=== PATIENT | male | born 1965 | race Caucasian/White ===

== ENCOUNTER 2018-07-24 17:24 | Emergency (ER) | payer OTHER ==
[~2018-07-24] VITALS: Ht 180.3 cm; Wt 117.9 kg
[2018-07-24] MEDS ORDERED: MELOXICAM7.5 MG PO (17:30)
[2018-07-24 17:54] LABS: ABSOLUTE EOSINOPHILS 0.1 thou/uL (0.0-0.7); ABSOLUTE LYMPHOCYTES 1.9 thou/uL (0.8-5.3); ABSOLUTE MONOCYTES 0.5 thou/uL (0.0-1.2); ABSOLUTE NEUTROPHILS 2.7 thou/uL (1.6-8.1); BASOPHILS 0.4 %; EOSINOPHILS 2.3 %; HEMATOCRIT 46.4 % (42.0-52.0); HEMOGLOBIN 16.2 gm/dL (14.0-18.0); LYMPHOCYTES 36.6 %; MCV 91.4 fL (80.0-100.0); MONOCYTES 8.9 %; MPV 8.8 fl. (7.2-11.1); NUCLEATED RBCS 0 /100WBC; PLATELET COUNT* 170 thou/uL (150-400); POLYS 51.8 %; RBC 5.08 mil/uL (4.50-6.00); RDW-CV 12.9 % (10.5-14.5); WBC 5.3 thou/uL (4.0-11.0)
[2018-07-24 18:02] LABS: ANION GAP 8 mmol/L (7-16); BUN 21 mg/dL (7-18); CALCIUM 8.6 mg/dL (8.5-10.1); CHLORIDE 104 mmol/L (98-107); CO2 29 mmol/L (21-32); CREATININE 1.1 mg/dL (0.6-1.3); GLUCOSE 104 mg/dL (70-99); POTASSIUM 3.6 mmol/L (3.5-5.1); SODIUM 141 mmol/L (136-145)
[2018-07-24 18:13] LABS: ALBUMIN 3.9 g/dL (3.4-5.0); ALKALINE PHOSPHATASE 51 U/L (46-116); LIPASE 80 U/L (73-393); NT-PRO BRAIN NAT PEPTIDE 6 pg/mL (<300); SGOT 19 U/L (15-37); SGPT 38 U/L (30-65); TOTAL BILIRUBIN 0.7 mg/dL (<0.1-1.0); TOTAL PROTEIN 7.6 g/dL (6.4-8.2); TROPONIN-I LEVEL <0.06 ng/mL (<0.06)
[2018-07-24 20:33] VITALS: BP 142/72
--- NOTE | 2018-07-25 13:46 | EKG ---
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1965 Requested By: Sherita Oh Order Number: [id number] MD: Paul Olmedo Measurements Intervals [place] Rate: 82 P: 18 ID: 190 QRS: -2 QRSD: 104 T: 7 QT: 391 QTc: 457 Interpretive Statements Sinus rhythm Consider anterior infarct Baseline wander in lead(s) V5 No previous ECG available for comparison Electronically Signed On 07-25-2018 13:46:10 [employer] by Paul Olmedo [email or web address] <ELECTRONICALLY SIGNED> By: Paul Olmedo MD, [facility] 07/25/18 1346 1730 1730 Paul Olmedo MD, FACC /EPI
== END 2018-07-24 20:59 | disposition short-term general hospital (02) ==
LOC: M.ERS 17:24
PROVIDERS: Nurse Practitioner Family
DX: T78.1XXA Other adverse food reactions, not elsewhere classified, initial encounter (principal); R22.0 Localized swelling, mass and lump, head; X58.XXXA Exposure to other specified factors, initial encounter

== ENCOUNTER → 2018-09-14 | Outpatient (CLI) | payer OTHER ==
[~2018-09-14] MED LIST: MELOXICAM7.5 MG PO
[2018-09-14 08:54] LABS: ABSOLUTE BASOPHILS 0.1 thou/uL (0.0-0.2); ABSOLUTE EOSINOPHILS 0.2 thou/uL (0.0-0.7); ABSOLUTE LYMPHOCYTES 2.2 thou/uL (0.8-5.3); ABSOLUTE MONOCYTES 0.3 thou/uL (0.0-1.2); ABSOLUTE NEUTROPHILS 3.1 thou/uL (1.6-8.1); BASOPHILS 0.9 %; EOSINOPHILS 3.4 %; HEMATOCRIT 47.9 % (42.0-52.0); HEMOGLOBIN 17.1 gm/dL (14.0-18.0); LYMPHOCYTES 37.1 %; MCH 32.4 pg (26.0-34.0); MCHC 35.8 g/dL (28.0-37.0); MCV 90.6 fL (80.0-100.0); MONOCYTES 5.3 %; MPV 8.7 fl. (7.2-11.1); NUCLEATED RBCS 0 /100WBC; PLATELET COUNT* 186 thou/uL (150-400); POLYS 53.3 %; RBC 5.29 mil/uL (4.50-6.00); WBC 5.9 thou/uL (4.0-11.0)
== END ==
LOC: M.LAB 08:39
PROVIDERS: Nurse Practitioner Family
DX: Z83.49 Family history of other endocrine, nutritional and metabolic diseases (principal)

== ENCOUNTER 2019-09-24 14:33 | Emergency (ER) | payer OTHER ==
[~2019-09-24] VITALS: Ht 180.3 cm; Wt 117.9 kg
[2019-09-24] MEDS ORDERED: LISINOPRIL2.5 MG PO (14:42)
[2019-09-24 15:01] LABS: ABSOLUTE EOSINOPHILS 0.2 thou/uL (0.0-0.7); ABSOLUTE MONOCYTES 0.5 thou/uL (0.0-1.2); ABSOLUTE NEUTROPHILS 2.8 thou/uL (1.6-8.1); BASOPHILS 0.7 %; EOSINOPHILS 3.2 %; HEMOGLOBIN 15.4 gm/dL (14.0-18.0); LYMPHOCYTES 36.8 %; MCH 31.6 pg (26.0-34.0); MCV 90.3 fL (80.0-100.0); MONOCYTES 9.3 %; MPV 9.3 fl. (7.2-11.1); NUCLEATED RBCS 0 /100WBC; PLATELET COUNT* 172 thou/uL (150-400); RBC 4.87 mil/uL (4.50-6.00); RDW-CV 13.1 % (10.5-14.5); WBC 5.5 thou/uL (4.0-11.0)
[2019-09-24 15:11] LABS: ANION GAP 9 mmol/L (7-16); BUN 14 mg/dL (7-18); CALCIUM 7.8 mg/dL (8.5-10.1); CHLORIDE 104 mmol/L (98-107); CO2 26 mmol/L (21-32); CREATININE 0.9 mg/dL (0.6-1.3); GLUCOSE 96 mg/dL (70-99); POTASSIUM 3.9 mmol/L (3.5-5.1); SODIUM 139 mmol/L (136-145)
[2019-09-24 15:14] LABS: APTT 26.9 Seconds (25.0-31.3); PROTIME 10.2 Seconds (9.20-11.50)
[2019-09-24 15:22] LABS: ALBUMIN 3.6 g/dL (3.4-5.0); ALKALINE PHOSPHATASE 49 U/L (46-116); NT-PRO BRAIN NAT PEPTIDE < 5 pg/mL (<300); SGOT 21 U/L (15-37); SGPT 47 U/L (30-65); TOTAL BILIRUBIN 0.4 mg/dL (<0.1-1.0); TOTAL PROTEIN 6.9 g/dL (6.4-8.2)
[2019-09-24 16:05] VITALS: BP 119/72
--- NOTE | 2019-09-25 12:19 | EKG ---
[place] [address] ELECTROCARDIOGRAM REPORT Name: GRAYSON CHAVEZ Room: [facility]#: [id number] Admission: 09/24/19 Attend Phys: Discharge: 09/24/19 Date of : 65 Date of Service: 09/24/19 1439 Report #: [id number] THIS REPORT FOR: //name// [facility] ED Test Date: 2019-09-24 Test Time: 14:39:38 Pat Name: GRAYSON CHAVEZ Department: Room: Gender: Manager Case: : 1965 Requested By: Luis Enrique Esquivel Order Number: [id number] MD: Paul Olmedo Measurements Intervals [place] Rate: 66 P: 35 AK: 182 QRS: 4 QRSD: 106 T: 10 QT: 372 QTc: 390 Interpretive Statements Sinus rhythm Compared to ECG 07/24/2018 17:30:42 no change Electronically Signed On 09-25-2019 12:18:16 [employer] by Paul Olmedo [email or web address] <ELECTRONICALLY SIGNED> By: Paul Olmedo MD, [facility] 09/25/19 1218 1439 1439 Paul Olmedo MD, FACC /EPI
== END 2019-09-24 16:06 | disposition home or self-care (01) ==
LOC: M.ERS 14:33
PROVIDERS: Family Medicine
DX: R42 Dizziness and giddiness (principal)

== ENCOUNTER → 2019-11-07 | Outpatient (CLI) | payer OTHER ==
[~2019-11-07] MED LIST changes: +LISINOPRIL2.5 MG PO
== END ==
LOC: M.MRI 11-01 16:07
DX: M51.34 Other intervertebral disc degeneration, thoracic region (principal); M47.816 Spondylosis without myelopathy or radiculopathy, lumbar region; M48.04 Spinal stenosis, thoracic region; M25.512 Pain in left shoulder; M54.40 Lumbago with sciatica, unspecified side

== ENCOUNTER → 2020-05-31 | Outpatient (CLI) | payer OTHER ==
--- NOTE | 2020-06-18 07:59 | PF ---
[address] [address] PULMONARY FUNCTION REPORT Name: GRAYSON CHAVEZ Room: [facility]#: [id number] Admission: 05/31/20 Attend Phys: Linda Sevilla, Discharge: Date of : 65 Report #: [id number] THIS REPORT FOR: //name// CC: Linda Sevilla DATE OF SERVICE: 05/31/2020 The FEV1/FVC ratio was normal at 74% with an FVC decreased to 76% and FEV1 decreased to 74%. The LKM14-70 is also decreased to 69%. After the administration of a bronchodilator, there is no significant increase in any of these values. The patient's post-bronchodilator FEV1 is noted to be 3.05 liters. The total lung capacity is decreased to 69% with residual volume, decreased to 51%. The DLCO as adjusted for hemoglobin is decreased to 48%. IMPRESSION: 1. There is significant restriction noted with a total lung capacity, decreased to 69%. 2. Underlying obstruction neuromuscular weakness or poor effort on spirometry. If present could be masked by the presence of restriction. 3. DLCO as adjusted for hemoglobin is decreased to 48%. <ELECTRONICALLY SIGNED> By: Kermit Archer MD 06/18/20 0759 0718 [id number] nimco Guerra
== END ==
LOC: M.PUL 08:49
PROVIDERS: ATTEND Nurse Practitioner Family
DX: R06.09 Other forms of dyspnea (principal)